=== PATIENT | female | born 1945 | race Caucasian/White ===

== ENCOUNTER 2021-11-05 15:11 | Emergency (ER) | payer MEDICARE, BC ==
[~2021-11-05] VITALS: Ht 162.6 cm; Wt 70.9 kg
[2021-11-05 16:20] VITALS: BP 135/65
[2021-11-05] MEDS ORDERED: ipratropium/albuterol 3ml nebule NEB ONE (16:45)
[2021-11-05] MEDS ORDERED: PRED20TA PO (18:16)
[2021-11-05] MEDS ORDERED: BENZ-38 PO (18:21)
== END 2021-11-05 19:34 | disposition home or self-care (01) ==
LOC: ER 15:11
DX: J44.1 Chronic obstructive pulmonary disease with (acute) exacerbation (principal); Z20.822 Contact with and (suspected) exposure to COVID-19; R06.02 Shortness of breath; R05.9 Cough, unspecified; R07.89 Other chest pain; Z72.89 Other problems related to lifestyle; Z79.899 Other long term (current) drug therapy
CPT/HCPCS: 71045; 87635; 94640; 99284; C9803; 94760